=== PATIENT | female | born 1950 | race Caucasian/White ===

== ENCOUNTER 2020-01-28 19:40 | Emergency (ER) | payer MEDICARE, BC ==
--- NOTE | 2020-01-28 20:06 | ER Document Report ---
ED Extremity Problem, Lower - General Chief Complaint: Medical Complaint Stated Complaint: LEFT FOOT sores Time Seen by Provider: 01/28/20 19:45 Primary Care Provider: INDIRA WALKER DPM [ACTIVE STAFF] - Follow up as needed Mode of Arrival: Ambulatory Information source: Patient Notes: 69-year-old female presented to ED for change to her foot from when she was seen by the playground aide. She has multiple little sores that she states are caused by a injury from a tree a while ago. She states they were not healing properly so [facility] sent her to the playground aide. He started on Santyl and she was supposed to apply this to the wounds and then dressed daily. She states that they put a cloth tape on her and she was told to clean the areas. She states she used soap and water on the areas and then read that she was supposed to use saline. She thought she was improving enough and antibiotic so she put it all over around the foot. The Santyl is not a antibiotic but a debrided medicine so I have informed her that she does not need to put it anywhere except for where the wound is. Constitutional: Negative for fever. HENT: Negative for sore throat. Eyes: Negative for visual changes. Cardiovascular: Negative for chest pain. Respiratory: Negative for shortness of breath. Gastrointestinal: Negative for abdominal pain, vomiting or diarrhea. Genitourinary: Negative for dysuria. Musculoskeletal: Negative for back pain. Skin: Multiple healing sores to both feet. There is red inflamed areas around the sores on the left foot where she has been spreading the medicine around the sores instead of just placing them on the sore Neurological: Negative for headaches, weakness or numbness. 10 point ROS negative except as marked above and in HPI. PHYSICAL EXAMINATION: GENERAL: Well-appearing, well-nourished and in no acute distress. HEAD: Atraumatic, normocephalic. EYES: Pupils equal round extraocular movements intact, conjunctiva are normal. ENT: Nares patent NECK: Normal range of motion LUNGS: No respiratory distress Musculoskeletal: Normal range of motion NEUROLOGICAL: Normal speech, normal gait. PSYCH: Normal mood, normal affect. SKIN: Multiple healing sores to both feet. There is red inflamed areas around the sores on the left foot where she has been spreading the medicine around the sores instead of just placing them on the sore - HPI Patient complains to provider of: Other - Rash around her healing sores Location: Foot Occurred: Other - 2 weeks Onset/Duration: Better Quality of pain: No pain Severity: None Pain Level: Denies Recent injury: No Exacerbated by: Nothing Relieved by: Nothing - Related Data Allergies/Adverse Reactions: codeine Allergy (Verified 01/28/20 20:19) hydrochlorothiazide [From Dyazide] Allergy (Verified 01/28/20 20:20) Penicillins Allergy (Verified 01/28/20 20:19) Sulfa (Sulfonamide Antibiotics) Allergy (Verified 01/28/20 20:20) triamterene [From Dyazide] Allergy (Verified 01/28/20 20:20) Past Medical History - General Information source: Patient - Social History Smoking Status: Never Smoker Frequency of alcohol use: None Drug Abuse: None Lives with: Alone Family History: Reviewed & Not Pertinent Patient has suicidal ideation: No Patient has homicidal ideation: No - Past Medical History Cardiac Medical History: Reports: Hx Hypercholesterolemia, Hx Hypertension Pulmonary Medical History: Reports: None EENT Medical History: Reports: None Neurological Medical History: Reports: None Endocrine Medical History: Reports: Hx Diabetes Mellitus Type 2 Renal/ Medical History: Reports: None Malignancy Medical History: Reports: None GI Medical History: Reports: None Musculoskeletal Medical History: Reports Hx Arthritis, Reports Hx Musculoskeletal Deformity, Reports Hx Musculoskeletal Trauma Skin Medical History: Reports Hx Cellulitis Psychiatric Medical History: Reports: Hx Anxiety, Hx Depression Traumatic Medical History: Reports: Hx Fractures Infectious Medical History: Reports: None Past Surgical History: Reports: Hx Orthopedic Surgery - Right knee - Immunizations Immunizations up to date: Yes Hx Diphtheria, Pertussis, Tetanus Vaccination: Yes - 2018 History of Pneumococcal Vaccine: Yes History of Influenza Vaccine for 11/2018 - 04/2019 Season: Yes Physical Exam - Vital signs Vitals: Temp Pulse BP Pulse Ox 99.0 F 133 H 126/67 H 100 01/28/20 19:48 01/28/20 19:48 01/28/20 19:48 01/28/20 19:48 Course - Re-evaluation Re-evalutation: 01/28/20 21:[address] Alvarez concerning this patient. He did come to the room and examined the patient. He did agree with my plan of care to clean the area with saline daily then apply the medication just to the actual wound cover with 2 x 2 and gauze. She is then to leave the wound uncovered at nighttime and let air get to it. She is to take all of her prescribed medications and follow-up with her primary care and her playground aide as scheduled. 01/28/20 21:52 Did discuss the pulse. She states she is extremely anxious. Dr. Alvarez did note the pulse and stated this was her anxiety and that she was able to go home at this time as long as her sugar was not over 300. Her sugar was 250. She states this she is frequently at this high and she will take her medicine as prescribed. - Vital Signs Vital signs: Temp Pulse Resp BP Pulse Ox 99.0 F 133 H 126/67 H 100 01/28/20 19:48 01/28/20 19:48 01/28/20 19:48 01/28/20 19:48 - Laboratory Results Critical Laboratory Results Reviewed: No Critical Results - Radiology Results Critical Radiology Results Reviewed: No Critical Results Discharge - Discharge Clinical Impression: Irritation around foot ulcer Condition: Stable Disposition: HOME, SELF-CARE Additional Instructions: Please rinse your wounds off with saline that has been provided, pat dry, apply Santyl just to the wound do not apply around the wound apply a 2 x 2 and wrapped with gauze each morning. Each evening please leave wound open to air do not put any dressings or socks on them. Please take all medications as prescribed by your primary doctor Please follow-up with your primary care and your playground aide as ordered. FOLLOW-UP CARE: If you have been referred to a physician for follow-up care, call the physicians office for an appointment as you were instructed or within the next two days. If you experience worsening or a significant change in your symptoms, notify the physician immediately or return to the Emergency Department at any time for re-evaluation. Referrals: INDIRA WALKER DPM [ACTIVE STAFF] - Follow up as needed
[2020-01-28 20:13] VITALS: BP 126/67
== END 2020-01-28 20:20 | disposition home or self-care (01) ==
LOC: ER 19:40
DX: E11.621 Type 2 diabetes mellitus with foot ulcer (principal); L97.529 Non-pressure chronic ulcer of other part of left foot with unspecified severity; L97.519 Non-pressure chronic ulcer of other part of right foot with unspecified severity; R21 Rash and other nonspecific skin eruption; I10 Essential (primary) hypertension; F41.9 Anxiety disorder, unspecified; Z88.6 Allergy status to analgesic agent; Z88.5 Allergy status to narcotic agent; Z88.8 Allergy status to other drugs, medicaments and biological substances; Z88.0 Allergy status to penicillin; Z88.2 Allergy status to sulfonamides
CPT/HCPCS: 82962; 99283

== ENCOUNTER → 2020-01-30 | Outpatient (CLI) | payer MEDICARE, BC ==
--- NOTE | 2020-01-30 12:07 | RADIOLOGY REPORT (SQ) ---
EXAM DESCRIPTION: ARTERIAL LOWER EXTREM BILAT IMAGES COMPLETED DATE/TIME: 01/30/2020 11:34 am REASON FOR STUDY: RT FOOT ULCER L97.512 NON-PRS CHRONIC ULCER OTH PRT RIGHT FOOT W FAT LAYER L97.52 2 NON-PRS CHRONIC ULCER OTH PRT LEFT FOOT W FAT LAYER E11.621 TYPE 2 DIABETES MELLITUS WITH FOOT U LCER COMPARISON: None. TECHNIQUE: Dynamic and static rojo scale and color images acquired of the lower extremity arteries. Additional selected spectral images recorded. LIMITATIONS: None. FINDINGS: RIGHT LEG: INFLOW ARTERIES: Normal, no obstruction evident. FEMORAL ARTERIES:Multiphasic waveforms. Normal, no velocity elevation to suggest focal stenosis. Norm al color Doppler evaluation. No aneurysm. POPLITEAL ARTERY:Multiphasic waveforms. Normal, no velocity elevation to suggest focal stenosis. Norm al color Doppler evaluation. No aneurysm. PATENT TIBIOPERONEAL TRUNK AND 3 VESSEL RUNOFF: Yes, normal vessels. OTHER: No other significant finding. LEFT LEG: INFLOW ARTERIES: Normal, no obstruction evident. FEMORAL ARTERIES:Multiphasic waveforms. Normal, no velocity elevation to suggest focal stenosis. Norm al color Doppler evaluation. No aneurysm. POPLITEAL ARTERY:Multiphasic waveforms. Normal, no velocity elevation to suggest focal stenosis. Norm al color Doppler evaluation. No aneurysm. PATENT TIBIOPERONEAL TRUNK AND 3 VESSEL RUNOFF: Yes, normal vessels. OTHER: No other significant finding. IMPRESSION: NORMAL BILATERAL LOWER EXTREMITY ARTERIAL DOPPLER. TECHNICAL DOCUMENTATION: JOB ID: [id number] 2010 [employer]- All Rights Reserved Reading location - IP/workstation name: [email or web address]
--- NOTE | 2020-01-30 12:08 | RADIOLOGY REPORT (SQ) ---
EXAM DESCRIPTION: PHYSIO ARTERIAL LTD COMPLETE DATE/TIME: 01/30/2020 11:34 am REASON FOR STUDY: RT FOOT ULCER L97.512 NON-PRS CHRONIC ULCER OTH PRT RIGHT FOOT W FAT LAYER L97.52 2 NON-PRS CHRONIC ULCER OTH PRT LEFT FOOT W FAT LAYER E11.621 TYPE 2 DIABETES MELLITUS WITH FOOT U LCER FINDINGS: Please see combined report for performance of procedure and radiologic supervision and int erpretation. IMPRESSION: Please see combined report for performance of procedure and radiologic supervision and i nterpretation. Reading location - IP/workstation name: [email or web address]
--- NOTE | 2020-01-30 12:20 | RADIOLOGY REPORT (SQ) ---
EXAM DESCRIPTION: FOOT BILATERAL 3 VIEWS IMAGES COMPLETED DATE/TIME: 01/30/2020 12:04 pm REASON FOR STUDY: (L97.512)NON-PRS CHRONIC ULCER OTH PRT RIGHT FOOT W FAT LAYER EXPOSED;(L97. COMPARISON: None. NUMBER OF VIEWS: Three views. TECHNIQUE: AP, lateral, and oblique radiographic images acquired of the right and left foot. LIMITATIONS: None. FINDINGS: MINERALIZATION: Normal. BONES: No fracture or dislocation. No osteomyelitis. Bilateral plantar calcaneal spurs. No signific ant arthritic changes. JOINTS AND SOFT TISSUES: No swelling. No calcifications. No foreign bodies. OTHER: No other significant finding. IMPRESSION: NEGATIVE STUDY OF THE RIGHT AND LEFT FOOT. THERE IS NO EVIDENCE OF OSTEOMYELITIS. TECHNICAL DOCUMENTATION: JOB ID: [id number] 2010 [employer]- All Rights Reserved Reading location - IP/workstation name: [email or web address]
[2020-01-30 12:48] LABS: ABSOLUTE BASOPHILS # (AUTO) 0.1 10^3/uL (0.0-0.2); ABSOLUTE EOSINOPHILS # (AUTO) 0.2 10^3/uL (0.0-0.6); ABSOLUTE LYMPHOCYTES (AUTO) 2.1 10^3/uL (0.5-4.7); ABSOLUTE MONOCYTES (AUTO) 0.6 10^3/uL (0.1-1.4); ABSOLUTE NEUT (AUTO) 4.6 10^3/uL (1.7-8.2); BASOPHILS % (AUTO) 1.1 % (0-2); EOSINOPHILS % (AUTO) 2.9 % (0-6); HEMATOCRIT 30.7 % (36.0-47.0); HEMOGLOBIN 10.6 g/dL (12.0-15.5); LYMPHOCYTES % (AUTO) 27.1 % (13-45); MEAN CORPUSCULAR HGB CONC 34.6 g/dL (32.0-36.0); MEAN CORPUSCULAR VOLUME 87 fl (80-97); MONOCYTES % (AUTO) 7.8 % (3-13); PLATELET COUNT 356 10^3/uL (150-450); RED BLOOD COUNT 3.54 10^6/uL (3.72-5.28); RED CELL DISTRIBUTION WIDTH 13.5 % (11.5-14.0); SEGMENTED NEUTROPHILS % (AUTO) 61.1 % (42-78); TOTAL CELLS COUNTED % (AUTO) 100 %; WHITE BLOOD COUNT 7.6 10^3/uL (4.0-10.5)
[2020-01-30 12:51] LABS: ALBUMIN 4.6 g/dL (3.5-5.0); ALKALINE PHOSPHATASE 84 U/L (38-126); ANION GAP 12 (5-19); ASPARTATE AMINO TRANSFERASE 38 U/L (14-36); BILIRUBIN,DIRECT 0.3 mg/dL (0.0-0.4); BILIRUBIN,TOTAL 0.5 mg/dL (0.2-1.3); BLOOD UREA NITROGEN 23 mg/dL (7-20); CALCIUM 10.3 mg/dL (8.4-10.2); CARBON DIOXIDE 23 mmol/L (22-30); CHLORIDE 99 mmol/L (98-107); GLUCOSE 229 mg/dL (75-110); POTASSIUM 5.7 mmol/L (3.6-5.0); TOTAL PROTEIN 8.7 g/dL (6.3-8.2)
[2020-01-30 13:03] LABS: C-REACTIVE PROTEIN < 5.0 mg/L (<10.0)
[2020-01-30 13:40] LABS: ERYTHROCYTE SEDIMENTATION RATE 56 mm/hr (0-30)
== END ==
LOC: SP 09:52
PROVIDERS: ATTEND Preventive Medicine Undersea and Hyperbaric Medicine
DX: E11.621 Type 2 diabetes mellitus with foot ulcer (principal); L97.512 Non-pressure chronic ulcer of other part of right foot with fat layer exposed; L97.522 Non-pressure chronic ulcer of other part of left foot with fat layer exposed
CPT/HCPCS: 36415; 80053; 83036; 85025; 85652; 86140; 93922; 93925